=== PATIENT | female | born 1995 | race Caucasian/White ===

== ENCOUNTER 2024-10-09 17:05 | Emergency (ER) | payer MEDICAID, SELFPAY ==
[2024-10-09 17:05] VITALS: BMI 23.8
--- NOTE | 2024-10-09 18:21 | PC.NURSE ---
Addendum entered by Bell Piedra 10/09/24 18:47: called for pt, no answerx2 @ 1840 Original Note: called for pt from lobby/outside, no answerx1@ 1821
== END 2024-10-09 18:54 | disposition left against medical advice (07) ==
PROVIDERS: Emergency Provider Emergency Medicine
DX: Z53.21 Procedure and treatment not carried out due to patient leaving prior to being seen by health care provider (principal)